=== PATIENT | male | born 1950 | race Caucasian/White ===

== ENCOUNTER 2019-03-20 05:56 | Day surgery (SDC) | payer MEDICARE, SELFPAY ==
--- NOTE | 2019-02-20 02:05 | HP_ITS ---
Intake Vital Signs 02/20/19 Height 5 ft 10 in 02/20/19 Weight: 158 lb 02/20/19 Body Mass Index (BMI) 22.6 02/20/19 Blood Pressure 134/76 H 02/20/19 Blood Pressure Location Rt brachial 02/20/19 Respiratory Rate 18 02/20/19 Pulse Rate 72 02/20/19 Pulse Source Monitor 02/20/19 Temperature 98.5 F 02/20/19 Pulse Ox 98 02/20/19 Oxygen Delivery Method room air Intake Visit Reasons: cscope, mi, stents last year Communications Professional Required: No Is patient in pain?: No Allergies No Known Allergies Allergy (Unverified 02/20/19 13:58) Medications aspirin 81 mg tablet,delayed release 81 mg PO DAILY 02/20/19 [History Confirmed 02/20/19] famotidine 20 mg tablet 20 mg PO BID 02/20/19 [History Confirmed 02/20/19] metoprolol tartrate 25 mg tablet 12.5 mg PO BID tab 02/20/19 [History Confirmed 02/20/19] ticagrelor 90 mg tablet 90 mg PO BID 02/20/19 [History Confirmed 02/20/19] [facility] Medical History Heart attack (Acute) Heart disease (Acute) Hypertension (Chronic) Surgical History History of coronary artery stent placement (Acute) History of fusion of cervical spine (Acute) History of prostatectomy (Acute) Family History Mother Cancer pancreatic cancer Uncle Diabetes Grandmother CVA (cerebral vascular accident) Social History (Updated 02/20/19 @ 14:05 by Alan Horn MD) Smoking Status: Never smoker alcohol intake: current substance use type: does not use HPI HPI HPI: EUNICE MCCLELLAN, is a 68 M who presents to the office today for HPI HPI Surgical H&P: Yes HPI: EUNICE MCCLELLAN, is a 68 M who presents to the office today for Evaluation for colonoscopy. Patient had a colonoscopy performed by myself in June 10, 2015. He was noted to have a tubular adenoma located within his rectum. Patient has had a heart attack last August had stents placed and is currently on Brilinta and aspirin. He has a Released from his commercial account executive stating that he can stop these medications 5 days prior to his procedure. ROS General General: Yes weight change; no appetite, fatigue, colon cancer, breast cancer or weakness HEENT HEENT: No difficulty swallowing, eye injury, eye surgery, swollen glands or hoarseness Endo Endocrine: No thyroid disease, diabetes mellitus, thyroid cancer, Hair loss, heat intolerance or cold intolerance Skin Skin: Yes changing moles; no rash Breast Breast: No left breast lump, right breast lump, nipple discharge, breast pain, abnormal mammogram, abnormal US or breast enlargement Musc Musculoskeletal: No back problems, arthritis, rheumatoid arthritis, gout or joint pain Cardio Cardiovascular: Yes heart disease, high blood pressure, heart attack and heart stent; no murmur, pacemaker, atrial fibrillation, palpitations, shortness of breat with exertion or chest pain Psych Psychiatric: No depression, anxiety or hearing voices Resp Respiratory: No shortness of breath, No sleep apnea, No cough, No COPD, No asthma, No emphysema, No wheezing Gastro Gastrointestinal: No abdominal pain, No nausea or vomiting, No diarrhea, No constipation, No blood in stool, No acid reflux, No hemorrhoids, No ulcers, No gallbladder problem, No black,tarry stools Sherif Hematologic: Yes blood thinners, No blood disorders, No bleeding, No anemia, No blood clots Neuro Neurologic: No system reviewed and no additional complaints, except as docu, No as per HPI, No abnormal walking, No abnormal hearing, No abnormal movements, No abnormal speech, No behavioral changes, No burning sensations, No confusion, No seizure-like activity, No unsteadiness, No dizziness, No localized weakness, No frequent falls, No headache(s), No lack of coordination, No loss of vision, No memory loss, No numbness, No other visual disturbances, No radiating pain, No restless legs, No sensory deficit, No fainting, No tingling, No tremor(s), No weakness, No other Exam Const General: no acute distress, well developed, well hydrated Orientation: oriented to person, oriented to place, oriented to time [facility] Head: normocephalic, atraumatic Ears: external ears normal Mouth: moist mucous membranes Eyes Sclera: sclerae normal Pupils: normal by confrontation Neck Neck: no lymphadenopathy noted Neck mass: No Thyroid: thyroid normal, symmetrical Chest Chest palpation & inspection: normal inspection of the chest Breast Palpation: No nipple discharge Resp Effort & Inspection: normal respiratory effort Auscultation: clear to auscultation bilaterally Percussion: percussion normal Cardio Rate: regular rate Rhythm: regular rhythm Heart Sounds: no murmurs GI Palpation: soft, no hepatosplenomegaly, no masses, nontender Rectal Exam: other Other: Rectal exam deferred. Extrem General: normal to inspection, no clubbing, cyanosis or edema Assessment & Plan Problems 1. Personal history of colonic polyps Z86.010 Plan I have discussed the above with the patient. I have offered the patient colonoscopy for evaluation. I have explained the risks/benefits of the procedure and described the procedure. I have discussed the risks with the patient, including but not limited to: infection, bleeding, perforation of the GI tract requiring emergency surgery, inability to complete the procedure, injury to any internal organs, complications of anesthesia, etc. - the patient understands and agrees to proceed. I have answered all the patient's questions to the patient's satisfaction and the patient has no further questions. The patient has been given instructions for the colon cleansing preparation. Coding Level of Care Code Off vis,new,level 3 Diagnoses Personal history of colonic polyps Z86.010 02/20/19 1406 <Electronically signed by Alan neville MD> Date _ Alan Horn MD I have re-examined the patient. There are no clinical changes since date of exam.
[2019-02-20 13:57] VITALS: BMI 22.6
[2019-03-20] VITALS (7 sets, daily range): BP systolic 99–122; BP diastolic 62–76; PULSE 52–70; RESP 16; TEMP 36.2–36.5; O2SAT 97–100; BMI 22.7
[2019-03-20] MEDS: Lactated Ringers 1,000 ML 100 ML IV (06:46)
--- NOTE | 2019-03-20 07:26 | OP.ENDO_ITS ---
03/20/2019 Jorge Crum [address] [place] [address] Re : Colonoscopy procedure for Francisco Casanova Dear Dr. Crum This procedure was performed on Wednesday, March 20, 2019. My impressions and recommendations are as follows: Impressions : - Diverticulosis in the sigmoid colon. No specimens collected. - Non-bleeding internal hemorrhoids. No specimens collected. - The examined portion of the ileum was normal. - The examination was otherwise normal. Recommendations : - Discharge patient to home. - Resume previous diet. - Continue present medications. - Repeat colonoscopy in 10 years for screening purposes. - Return to primary care physician PRN. My findings are described in the full procedure note, which is enclosed. If I can be of further assistance, please feel free to contact me at Doctor phone number(s): , Fax: [phone], Work: . Sincerely, MD Alan Flores MD 03/20/2019 7:26:28 AM This report has been signed electronically.
== END 2019-03-20 08:11 | disposition home or self-care (01) ==
LOC: EN 05:57 → AC 05:59
PROVIDERS: Family Provider Family Medicine; PCP Family Medicine; Referring Provider Family Medicine; Visit Provider Surgery
PROC: 0DJD8ZZ Inspection of Lower Intestinal Tract, Via Natural or Artificial Opening Endoscopic (ICD-10-PCS; CPT 45378; principal; 2019-03-20 06:55)
DX: K57.30 Diverticulosis of large intestine without perforation or abscess without bleeding (principal); K64.9 Unspecified hemorrhoids; Z86.010 Personal history of colon polyps; I10 Essential (primary) hypertension; I25.10 Atherosclerotic heart disease of native coronary artery without angina pectoris; I25.2 Old myocardial infarction; K21.9 Gastro-esophageal reflux disease without esophagitis; E78.00 Pure hypercholesterolemia, unspecified; Z95.5 Presence of coronary angioplasty implant and graft; Z85.46 Personal history of malignant neoplasm of prostate; Z85.828 Personal history of other malignant neoplasm of skin; Z79.02 Long term (current) use of antithrombotics/antiplatelets; Z79.82 Long term (current) use of aspirin; Z79.899 Other long term (current) drug therapy
CPT/HCPCS: G0105; J7120; J1610; J2405

== ENCOUNTER → 2019-09-25 | Outpatient (CLI) | payer MEDICARE, SELFPAY ==
[2019-09-25 10:10] VITALS: BMI 23.2
[2019-09-25 13:21] LABS: AST(SGOT) 27 U/L (15-37); Alanine Aminotransfer ALT/SGPT 42 U/L (16-61); Albumin, Serum 3.9 g/dL (3.2-5.0); Alkaline Phosphatase 105 U/L (45-117); Bilirubin, Direct 0.17 mg/dL (0.00-0.30); Cholesterol 165 mg/dL (200); Globulin 3.6 g/dL (2.2-4.2); High Density Lipoprotein 56 mg/dL; Protein, Total 7.5 g/dL (6.4-8.2); Triglycerides 130 mg/dL; Very Low Density Lipoprotein 26 mg/dL (5-40)
== END | disposition home or self-care (01) ==
LOC: LAB 11:29
PROVIDERS: PCP Family Medicine; Referring Provider Internal Medicine Cardiovascular Disease; Visit Provider Internal Medicine Cardiovascular Disease
DX: I25.10 Atherosclerotic heart disease of native coronary artery without angina pectoris (principal); I25.2 Old myocardial infarction
CPT/HCPCS: 36415; 80061; 80076

== ENCOUNTER → 2019-10-11 | Outpatient (CLI) | payer MEDICARE, SELFPAY ==
[2019-09-25 10:10] VITALS: BMI 23.2
--- NOTE | 2019-10-11 12:33 | STRESSREP ---
Stress Test Report Pharmacologic myocardial perfusion stress test. 69-year-old man with a history of coronary artery disease status post angioplasty and stenting of the right coronary artery with a previous ST elevation myocardial infarction. Stress protocol: Resting EKG demonstrates normal sinus rhythm with a rate of 59 bpm normal intervals are noted. The patient exercised according to regular Humberto protocol for a total duration of 12 minutes. The maximum heart rate attained was 130 bpm which was 85% of maximum predicted heart rate the maximum workload was 13.4 metabolic equivalents. At rest there were no ST or T wave changes noted suggest ischemia at peak exercise upsloping ST changes only were noted with no meet the criteria for ischemia. No clinical angina was noted the test was terminated due to target heart rate being achieved. The resting blood pressure was 118/80 mmHg with a peak of 164/70 mmHg. No clinical angina was noted. Myocardial perfusion protocol. 12.0 mCi of technetium 99m sestamibi was injected at rest. The patient exercised according to regular Humberto protocol for a total duration of 12 minutes at peak exercise 36.0 mCi of technetium 99m sestamibi was injected stress images were obtained stress and rest images were reconstructed and compared in the short axis vertical long horizontal long axis. Gated images were also obtained Perfusion SPECT analysis: Review of the stress images demonstrate normal uptake of tracer noted in all areas of the myocardium the resting images similarly demonstrate normal uptake of tracer noted in all areas of the myocardium. No reversibility is noted suggest ischemia no previous infarct is noted. Gated SPECT analysis: The gated ejection fraction is 55%. Conclusion: Normal exercise myocardial perfusion stress test at a high workload. Preserved ejection fraction.
== END | disposition home or self-care (01) ==
PROVIDERS: PCP Family Medicine; Referring Provider Internal Medicine Cardiovascular Disease; Visit Provider Internal Medicine Cardiovascular Disease
DX: I25.10 Atherosclerotic heart disease of native coronary artery without angina pectoris (principal)
CPT/HCPCS: 78452; 93017; A9500; A4216

== ENCOUNTER → 2021-05-13 14:31 | Outpatient (CLI) | payer MEDICARE, SELFPAY ==
--- NOTE | 2021-05-13 14:34 | RAD_ITS ---
STUDY: X-RAY - RIGHT CLAVICLE REASON FOR EXAM: Male, 70 years old. PAIN TECHNIQUE: 2 view(s) of the clavicle. COMPARISON: None. FINDINGS: Normal clavicle. There is degenerative arthrosis of the acromioclavicular joint without inferior osseous prominence. There is degenerative arthrosis of the sternoclavicular articulation. Normal visualized pulmonary apex. RAD/Clavicle IMPRESSION: Arthrosis, no demonstrated fracture or suspicious osseous lesion Electronically Signed: Christian Apple MD at 16:27 EST , Service support ,
--- NOTE | 2021-05-13 14:34 | RAD_ITS ---
STUDY: X-RAY - RIGHT SHOULDER REASON FOR EXAM: Male, 70 years old. PAIN TECHNIQUE: 2 view(s) of the shoulder. COMPARISON: None. FINDINGS: Unremarkable glenohumeral articulation. Normal acromioclavicular joint. Normal acromion. Small degenerative spur of the inferior aspect of the outer end of the right clavicle. Normal humeral head and visualized proximal humerus. The soft tissue structures are unremarkable. Status post fusion of the lower cervical spine. Normal visualized pulmonary apex. RAD/Shoulder min 2 Views IMPRESSION: Mild degenerative arthrosis. Electronically Signed: Chuck Wright, at 12:07 EST Tel , Service support ,
--- NOTE | 2021-05-13 14:40 | RAD_ITS ---
STUDY: X-RAY - STERNOCLAVICULAR JOINTS REASON FOR EXAM: Male, 70 years old. R sc joint enlargement TECHNIQUE: 3 view(s) of the bilateral sternoclavicular joints were obtained. COMPARISON: None. FINDINGS: Normal bilateral sternoclavicular articulations. Normal visualized bilateral clavicles. Normal manubrium. Normal visualized ribs. RAD/S-C Jts Min 3 Views IMPRESSION: No suspicious findings. However, plain film evaluation of the sternum in the sternoclavicular joints is not optimal. Consider further evaluation with CT Electronically Signed: Christian Apple MD at 15:45 EST , Service support ,
== END ==
PROVIDERS: PCP Family Medicine; Referring Provider Family Medicine; Visit Provider Family Medicine
DX: M25.511 Pain in right shoulder (principal); M25.811 Other specified joint disorders, right shoulder
CPT/HCPCS: 71130; 73000; 73030

== ENCOUNTER 2021-06-17 09:00 | Outpatient (RCR) | payer MEDICARE, SELFPAY ==
--- NOTE | 2021-05-20 13:06 | HP.PTEVAL_ITS ---
Patient's Visit Information EUNICE MCCLELLAN is a 70 year old M referred to Physical Therapy by Dr. Jorge Crum DO with a diagnosis of RIGHT SHOULDER PAIN,RIGHT SHOULDER OA. Date of Evaluation: 05/20/21 Physical Therapist: Konrad Cason, PT, Cert MDT, OCS - Visit Plan Frequency: 2x /Week Duration: 4 Weeks Plan: PT INTERVETIONS POSTURAL EX'S,RTC/SCAPULAR STRENGTHNENING ,AND MODALTIES PRN - Subjective This 70 y/o male presents to physical therapy with right shoulder pain . Patient has had pain since ~ August ,Patient pain after splitting firewood.Patient noticed lump and pain sternum . Symptoms worsen overtime return to DR ,then rhiannon mmended PT. Patient had x-rays . Pain is located right AC pain better in scapular and has pain sternum. Aggravating factors lifting, reaching behind back. Alleviating factors rest. Denies paresthesia/tingling. Pain affects sleeping. Pain does have sharp pain abduction with some type of weight. Denies CORTEZ . Patient is active works out and running on treadmill. Patient has had cervical HNP s/p cervical fusion ~ 20 years ago. SOCIAL: . VOCATION: Retired - Pain Right Shoulder Pain Intensity (Out of 10): 1 Pain Intensity Range: 10 - Objective POSTURE: mild forward posture. PALAPTION: mild tender AC,SC bony prominence elevated. NEURO: denies paresthesia ,reflexes C5-6-7 1/3. AROM SHOULDER : flexion 160 degrees, abduction 160 degrees, ER 90 degrees, IR L1. CERVICAL ROM: flexion mod loss, extension mod severe loss, lateral flexion/rotation mod loss. MMT: supraspinatous 4-/5, infraspinatous 4-/5 mild pain ,subscapularis 4/5 deltoid 4-/5 - Special Tests C/S Radiculapathy - Left Upper limb tension test: Negative C/S Radiculapathy - Right Upper limb tension test: Negative C/S Radiculapathy - Left Spurlings: Negative C/S Radiculapathy - Right Spurlings: Negative R Shoulder Neer - Impingement: Positive R Shoulder Peace Shayne - Impingement: Positive R Shoulder AC Resisted - AC: Negative R Shoulder Shrug Sign - OA/Adhesive Capsulitis: Negative - Balance/Special Test Scores Quick DASH Score: 25.0000 - Goals Goal 1:: Patient to be I with HEP for shoulder Goal Time Frame: 4-6 Weeks Goal 2:: Patient to improve posture with ADLS and housework tasks 90% of the time Goal Time Frame: 4-6 Weeks Goal 3:: Patient to demonstrate 50% improvement with decrease shoulder pain to improve function. Goal Time Frame: 4-6 Weeks Goal 4:: Patient to improve shoulder RTC strength 4/5 with no pain to improve functionals and resume prior functional tasks Goal Time Frame: 4-6 Weeks Goal 5:: Patient to increase quick dash shoulder by 5 points to improve QOL Goal Time Frame: 4-6 Weeks - Rehabilitation Potential Physical Therapy Diagnosis: This patient has left shoulder pain with impingement with pain in left shoulder with certain activity affecting daily function and pain with RTC with MMT thus benefit skilled PT Rehabilitation Potential: Good - Anticipated Interventions Patient/Client Instruction: Educate patient on: Condition, Plan of Care For the Purpose of:: To decrease pain, To increase ROM, To improve muscle performance and motor function, To improve ability to perform ADL's, To increase tolerance to activity/condition/position, To improve performance and independence with ADL's, To improve ability of physical actions for home/community/work/leisure, To improve health of tissue, To decrease soft tissue restriction, To increase flexibility/ROM, To prevent re-injury Therapeutic Exercise to Include: Strength training, Postural training, Flexibilty training, Active ROM, Scapular Strength/Stabilization Comment: RTC For the Purpose of:: To decrease pain, To increase ROM, To improve muscle performance and motor function, To improve ability to perform ADL's, To increase tolerance to activity/condition/position, To improve ability of physical actions for home/community/work/leisure, To improve health of tissue, To decrease soft tissue restriction, To increase flexibility/ROM, To prevent re-injury TENS: Yes IF ES: Yes Cryotherapy (ice pack, ice massage): Yes Thermo therapy (hot pack): Yes Ultrasound (thermal/non thermal): Yes For the Purpose of:: To decrease pain, To increase ROM, To improve muscle performance and motor function, To increase tolerance to activity/condition/position Thank you for the opportunity to evaluate your patient. For Medicare and Medicare HMO plans, please review the plan of care and approve it. It will need to be FAXED BACK to us at [phone] for Medicare purposes. For Medicare only, by signing this I certify the plan of care. Please let me know if there are questions or concerns regarding this plan of care. Physician Signature: Date:
== END 2021-06-17 19:00 | disposition home or self-care (01) ==
LOC: PT 09:00
PROVIDERS: PCP Family Medicine; Referring Provider Family Medicine; Visit Provider Family Medicine
DX: M19.011 Primary osteoarthritis, right shoulder (principal)
CPT/HCPCS: 97110; 97162